=== PATIENT | male | born 1985 | race Caucasian/White ===

== ENCOUNTER 2022-06-09 19:36 | Emergency (ER) | payer OTHER, SELFPAY ==
--- NOTE | 2022-06-09 19:44 | XRR_ITS ---
PROCEDURE INFORMATION: Exam: XR Right Knee Exam date and time: 06/09/2022 7:48 PM Age: 37 years old Clinical indication: Injury or trauma; Fall; Work related; Sprain or strain; Patella or knee; Right; Additional info: Injury, anterior medial pain TECHNIQUE: Imaging protocol: Radiologic exam of the Right knee. Views: 3 views. COMPARISON: No relevant prior studies available. FINDINGS: Bones/joints: Normal. Soft tissues: Normal. XR/XR knee RT 3V* [id number] IMPRESSION: No acute findings.
[2022-06-09 19:54] VITALS: BP 156/96; PULSE 52; RESP 18; TEMP 36.6; O2SAT 96; BMI 30.6
--- NOTE | 2022-06-09 21:46 | ED_ITS ---
HPI - Extremity Problem General: Chief complaint: Extremity Problem,Nontraumatic Stated complaint: right knee injury Time Seen by Provider: 06/09/22 21:06 History of Present Illness: Patient is a 37-year-old male who comes to the ED with right knee injury. Injury occurred just prior to arrival. Patient works for the [employer] and was chasing a perp. After getting the burp down and apprehended he went to stand up on his right knee and felt a pop. He rates the pain currently a 2 out of 10. Knee pain worsens with leg in certain positions. He is able to ambulate on right knee with minimal pain. Patient took ibuprofen and Tylenol before coming to the ED. Associated symptoms: Deny chest pain, fever(s) or rash Review of Systems Const: Denies: fever(s), chills or fatigue Eyes: Denies: change in vision or eye discomfort ENMT: Denies: throat pain, odynophagia, nasal discharge or nasal congestion Card: Denies: chest pain, palpitations, edema, swelling of feet/ankles, dyspnea on exertion or orthopnea Resp: Denies: dyspnea, productive cough or non-productive cough GI: Denies: abdominal pain, nausea, vomiting, diarrhea, constipation or hematochezia : Denies: flank pain, difficulty urinating, dysuria or hematuria Musc: Reports: extremity pain (Right knee); Denies: neck pain, back pain or extremity swelling Skin/Breast: Denies: rash or new lesions Neuro: Denies: headache(s), numbness in extremities or weakness in extremities [facility] ED PFSH: Medical History (Updated 06/10/22 @ 11:03 by BRIAN Foote) No pertinent family history Surgical History (Updated 06/10/22 @ 11:03 by BRIAN Foote) No pertinent past surgical history Physical Exam Const: COMMON NORMALS: patient oriented x3 HENMT: COMMON NORMALS: normocephalic HEAD & SCALP: normocephalic MOUTH: Normal oral and palatal mucosa present THROAT: posterior oropharynx normal and uvula midline Neck/C-Spine: COMMON NORMALS: supple GENERAL: Yes normal visual inspection Resp: COMMON NORMALS: normal respiratory effort, No retractions, No use of accessory muscles and clear to auscultation bilaterally AUSCULTATION: clear to auscultation bilaterally Cardio: COMMON NORMALS: regular rate, regular rhythm, S1 normal heart sound present, S2 normal heart sound present, No gallops present (Cardio), No clicks p resent (Cardio), No murmurs present (Cardio) and Peripheral pulses 2+ throughout RATE: regular rate RHYTHM: regular rhythm HEART SOUNDS: S1 normal heart sound present and S2 normal heart sound present PERIPHERAL PULSES: Peripheral pulses 2+ throughout GI: COMMON NORMALS: Normal to inspection, nondistended, normoactive bowel sounds present, Soft to palpation, non-tender and no masses PALPATION: Yes Soft to palpation : COMMON NORMALS: Yes no CVA tenderness BLADDER/KIDNEY EXAM: Yes no CVA tenderness Back/Pelvis: COMMON NORMALS: no CVA tenderness Extremity: COMMON NORMALS: normal to inspection Neuro: COMMON NORMALS: patient oriented x3 GAIT: Yes Normal gait present Skin: GENERAL SKIN EXAM: dry skin Course Vital Signs: Vital signs: Vital Signs Temperature 98 F 06/09/22 19:54 Pulse Rate 68 06/09/22 22:06 Respiratory Rate 16 06/09/22 22:06 Blood Pressure 156/96 06/09/22 19:54 Pulse Oximetry 99 06/09/22 22:06 Oxygen Delivery Me thod 06/09/22 19:54 MDM - Extremity (Nontraumatic) Medical Decision Making Patient is a 37-year-old male who comes to the ED with right knee injury. Injury occurred just prior to arrival. Patient works for the [employer] and was chasing a perp. After getting the burp down and apprehended he went to stand up on his right knee and felt a pop. He rates the pain currently a 2 out of 10. Knee pain worsens with leg in certain positions. He is able to ambulate on right knee with minimal pain. Patient took ibuprofen and Tylenol before coming to the ED. vitals are stable. Exam of patient is benign. X-ray of right knee shows no acute fractures or findings. Patient was diagnosed with a right knee sprain and was stable for discharge home. He was given a dose of Toradol here in the ED and discharged home with a prescription for ibuprofen 800 mg. Return to ED precautions given. Patient understood agree with plan Lab Data Radiology Impressions Knee X-Ray 06/09/22 19:44 IMPRESSION: No acute findings. Discharge Plan Discharge Patient Disposition: Home Clinical Impression: Right knee sprain Qualifiers: Encounter type: initial encounter Involved ligament of knee: unspecified ligament Qualified Code(s): S83.91XA - Sprain of unspecified site of right knee, initial encounter Condition: Stable Prescriptions: New ibuprofen 800 mg tablet 800 mg PO Q8H PRN (Reason: pain) Qty: 20 0RF Discharge Orders: Discharge ED (Routine); Ordered 06/09/22 Ordered By: Horacio Aguilera Referrals: Chapis Mendez FNP [Primary Care Provider] - Discharge Diet: Regular Discharge Activity: Increase activity as tolerated Patient Instructions: Knee Sprain (ED) Activity Restrictions/Additional Instructions: Follow-up with medical provider as directed next 5 to 7 days for reevaluation. Rest, ice and elevate right knee. Take medications as prescribed. Return to the ER or your medical provider if condition worsens. Please read and understand discharge instructions. Thank you for choosing [facility] for your healthcare needs today. Please realize this is an emergency room and that we are providing you with a medical screening exam and this may not be complete and all inclusive of all the testing and or work up that you may need to determine your ailment or severity of your illness. It is very important that you follow up as instructed or that you return to the Emergency Department should you have concerns or if your condition changes or worsens in any way. Coding Level of Care Code ED Manager Environmental Affairs for [facility] Exam Comprehensive
[2022-06-09] MEDS: ketorolac 60 mg/2 mL INJ IM (22:02)
[2022-06-09 22:06] VITALS: PULSE 68; RESP 16; O2SAT 99
== END 2022-06-09 22:08 | disposition home or self-care (01) ==
PROVIDERS: Emergency Provider Physician Assistant; PCP Nurse Practitioner
DX: S83.91XA Sprain of unspecified site of right knee, initial encounter (principal); Y35.811A Legal intervention involving manhandling, law enforcement official injured, initial encounter
CPT/HCPCS: 73562; 96372; 99284; J1885